=== PATIENT | male | born 1945 | race Caucasian/White ===

== ENCOUNTER → 2017-11-12 | Outpatient (CLI) | payer MEDICARE ==
[~2017-11-12] MED LIST: HYTRIN10 MG
--- NOTE | 2017-11-12 15:41 | Diagnostic Imaging Report ---
EXAM: Renal Ultrasound INDICATION: \[id number] \[id number] \S\CYST OF KIDNEY COMPARISON: Renal ultrasound 05/30/2017 TECHNIQUE: Transverse and longitudinal images of the kidneys and bladder were obtained. FINDINGS: Right Kidney: Size: 11 x 5.2 x 5.8 cm Echogenicity: Normal Parenchymal thickness: Normal Collecting system: No hydronephrosis Stones: None Cyst/Mass: None Left Kidney: Size: 10.3 x 5 x 5 cm Echogenicity: Normal Parenchymal thickness: Normal Collecting system: No hydronephrosis Stones: None Cyst/Mass: Interpolar 1.7 x 1.8 x 2.2 cm anechoic simple parapelvic cyst (previously 2.3 x 1.8 x 2.3 cm). Bladder: Normal Prostate: 2.6 x 3.3 x 3.8 cm (16.8 cc), within normal size. IMPRESSION: Slightly decreased size of the left renal parapelvic cyst. Otherwise, unremarkable renal ultrasound. Signed by: DR. Will Guzmán MD on 11/12/2017 3:38 PM
== END ==
LOC: US 09:42
PROVIDERS: ATTEND Urology
DX: N28.1 Cyst of kidney, acquired (principal)
CPT/HCPCS: 76770

== ENCOUNTER → 2017-11-27 | Outpatient (CLI) | payer MEDICARE ==
--- NOTE | 2017-11-27 12:12 | Diagnostic Imaging Report ---
PROCEDURE:TESTICULAR DOPPLER ULTRASOUND COMPARISON:None. INDICATIONS:SPERMATOCELE OF EPIDIDYMIS TECHNIQUE:The scrotum was evaluated with acosta scale and color duplex Doppler sonography. FINDINGS: Please see same day testicular ultrasound for full report. CONCLUSION: Please see same day testicular ultrasound for full report. Dictated by: Will Guzmán M.D. on 11/27/2017 at 12:22 Electronically approved by: Will Guzmán M.D. on 11/27/2017 at 12:22
--- NOTE | 2017-11-27 12:12 | Diagnostic Imaging Report ---
PROCEDURE:TESTICULAR ULTRASOUND COMPARISON:None. INDICATIONS:SPERMATOCELE OF EPIDIDYMIS TECHNIQUE: [place]on-scale and color doppler images of the testicles and scrotal contents were obtained. Duplex imaging with spectral waveform analysis was performed of the testicular arteries and veins. FINDINGS: RIGHT SCROTUM: Testicle: 2.3 x 1.2 x 1.4 cm. Homogeneous in echotexture. No masses. Color Doppler signal noted throughout. Normal venous and arterial spectral Doppler waveforms. Epididymal head: 0.9 x 0.9 x 0.6 cm. Homogeneous without increased vascularity. Hydrocele: None Varicocele: None LEFT SCROTUM: Testicle: 2.3 x 1 x 2.5 cm. Homogeneous in echotexture. No masses. Color Doppler signal noted throughout. Normal venous and arterial spectral Doppler waveforms. Epididymal head: 0.7 x 0.6 x 0.6 cm. Homogeneous without increased vascularity. Hydrocele: None Varicocele: None Additional findings: A 0.8 x 0.3 x 0.6 cm oval hypoechoic lesion appears centered within the dermal layer of the inner right thigh/lateral right scrotal wall. No detectable vascularity. No obvious tract to the skin. CONCLUSION: 1. No epididymal cysts or spermatoceles. 2. Subcentimeter hypoechoic lesion in the inner right thigh/lateral right scrotal wall may represent a sebaceous cyst. Dictated by: Will Guzmán M.D. on 11/27/2017 at 12:21 Electronically approved by: Will Guzmán M.D. on 11/27/2017 at 12:21
== END ==
LOC: US 10:52
PROVIDERS: ATTEND Urology
DX: N43.40 Spermatocele of epididymis, unspecified (principal)
CPT/HCPCS: 76870; 93976

== ENCOUNTER → 2018-12-08 | Outpatient (CLI) | payer MEDICARE ==
--- NOTE | 2018-12-08 15:12 | Diagnostic Imaging Report ---
EXAM: Scrotal Ultrasound INDICATION: SPERMATOCELE OF EPIDIDYMIS COMPARISON: None TECHNIQUE: Transverse and longitudinal images were obtained of the scrotum with grayscale imaging, color Doppler and spectral waveform analysis. FINDINGS: Right testis: Size: 2.4 x 1.2 x 2.1 cm, normal in size. Echogenicity: Normal Mass/Cysts: None Left testis: Size: 2.7 x 1.3 x 1.7 cm, normal in size. Echogenicity: Normal Mass/Cysts: None Epididymis: Appearance: Normal in size without increased vascularity. Mass/Cysts: There is a complex lesion in the left epididymal tail measuring 0.8 x 0.7 x 1.4 cm without internal flow, however, mild surrounding hypervascularity possibly a complex spermatocele or cyst cyst versus infectious etiology. Extratesticular: Masses: None Fluid collections: None Note is made of an oval hypoechoic subcutaneous lesion with posterior acoustic enhancement in the right thigh estimated at 0.9 x 0.5 x 0.6 cm. Doppler: Normal arterial flow to both testes and symmetrical flow on color Doppler evaluation is seen. No evidence of testicular torsion. IMPRESSION: 1. 1.4 cm complex lesion in the left epididymal tail may represent a complex spermatocele/cyst or possibly infectious in etiology in the proper clinical setting. Recommend follow-up to document resolution 2. Incidentally noted 0.9 cm subcutaneous cystic lesion in the proximal right thigh laterally. Signed by: Dr. Dante Osullivan M.D. on 12/08/2018 3:09 PM
== END ==
LOC: US 09:47
PROVIDERS: ATTEND Urology
DX: N43.40 Spermatocele of epididymis, unspecified (principal)
CPT/HCPCS: 76870; 93976

== ENCOUNTER → 2020-09-01 | Day surgery (SDC) | payer MEDICARE ==
[2020-08-29 13:30] LABS: BASOPHILS % 0.4 % (0.0-1.0); EOSINOPHILS # (AUTO) 0.1 (0.0-0.4); HEMATOCRIT 41.4 % (38.2-49.6); HEMOGLOBIN 13.5 g/dL (14.0-18.0); LYMPHOCYTES # (AUTO) 1.4 (1.0-3.2); LYMPHOCYTES % 19.5 % (18.0-39.1); MEAN CORPUSCULAR HEMOGLOBIN 30.4 pg (28-32); MEAN CORPUSCULAR HGB CONC 32.6 g/dL (31-35); MEAN CORPUSCULAR VOLUME 93.2 fL (81-99); MONOCYTES # (AUTO) 0.6 (0.2-0.8); MONOCYTES % 8.3 % (4.4-11.3); NEUTROPHILS # (AUTO) 4.9 (2.1-6.9); NEUTROPHILS % 70.5 % (38.7-80.0); PLATELET COUNT 271 x10e3/uL (140-360); RED BLOOD COUNT 4.44 x10e6/uL (4.3-5.7); RED CELL DISTRIBUTION WIDTH 13.2 % (11.7-14.4)
[2020-08-29 13:59] LABS: ANION GAP 14.6 mmol/L (8-16); BLOOD UREA NITROGEN 18 mg/dL (7-26); BUN/CREATININE RATIO 17 (6-25); CALCIUM 9.6 mg/dL (8.4-10.2); CARBON DIOXIDE 26 mmol/L (22-29); CHLORIDE 104 mmol/L (98-107); CREATININE, SERUM 1.06 mg/dL (0.72-1.25); EST GLOMERULAR FILTRATION RATE > 60 ML/MIN (60-); GLUCOSE 169 mg/dL (74-118); POTASSIUM 4.6 mmol/L (3.5-5.1); SODIUM 140 mmol/L (136-145)
[~2020-09-01] MED LIST changes: +ASPIRIN81 MG; +ATORVASTATIN CA20 MG PO; +BUPIVACAINE HCL 0.5% INJ 30 ML VIAL INJ ONE; +CEFAZOLIN SOD 1 GM/NS 50ML 100 ML IV ONE; +CHONDROITIN SU100 GM; +DEXAMETHASONE SOD PHOS INJ 4 MG/ML VIAL ONE; +FENTANYL CITRATE/PF 100MCG/2 ML INJ ONE; +LEVOCETIRIZINE D5 MG; +LIDOCAINE HCL 2% LOCAL INJ 5 ML SDV VIAL INJ ONE; +NEOSTIGMINE 1 MG/ML 10ML VIAL ONE; +ONDANSETRON HCL INJ 2MG/ML 2ML 2 MG/ML VIAL ONE; +POLYETHYLENE GL17 GM PO; +PROPOFOL IV EMULSION 10 MG/ML 20 ML VIAL ONE; +SEVOFLURANE INHAL SOLN 250 ML PEN BTL ONE
[2020-09-01 11:10] VITALS: BP 138/61
== END | disposition home or self-care (01) ==
LOC: OR 07:02
PROVIDERS: ATTEND Podiatrist Foot Surgery
DX: G57.62 Lesion of plantar nerve, left lower limb (principal); M20.42 Other hammer toe(s) (acquired), left foot; G47.33 Obstructive sleep apnea (adult) (pediatric); I10 Essential (primary) hypertension; R73.03 Prediabetes; B15.9 Hepatitis A without hepatic coma; Z88.8 Allergy status to other drugs, medicaments and biological substances; Z01.810 Encounter for preprocedural cardiovascular examination; Z01.812 Encounter for preprocedural laboratory examination; Z01.818 Encounter for other preprocedural examination; Z20.828 Contact with and (suspected) exposure to other viral communicable diseases; Z79.82 Long term (current) use of aspirin
CPT/HCPCS: 28080; 28285; 36415; 71046; 80048; 85025; 88305; 93005; C1713 ×2; J0690; J1100; J2001; J2405; J2704; J2710; J3010; U0002; V2790; 76000

== ENCOUNTER 2025-04-29 16:17 | Emergency (ER) | payer MEDICARE ==
[~2025-04-29] VITALS: Ht 182.9 cm; Wt 82.2 kg
[~2025-04-29 16:17] MED LIST changes: -BUPIVACAINE HCL 0.5% INJ 30 ML VIAL INJ ONE; -CEFAZOLIN SOD 1 GM/NS 50ML 100 ML IV ONE; -DEXAMETHASONE SOD PHOS INJ 4 MG/ML VIAL ONE; -FENTANYL CITRATE/PF 100MCG/2 ML INJ ONE; -LIDOCAINE HCL 2% LOCAL INJ 5 ML SDV VIAL INJ ONE; -NEOSTIGMINE 1 MG/ML 10ML VIAL ONE; -ONDANSETRON HCL INJ 2MG/ML 2ML 2 MG/ML VIAL ONE; -PROPOFOL IV EMULSION 10 MG/ML 20 ML VIAL ONE; -SEVOFLURANE INHAL SOLN 250 ML PEN BTL ONE
[2025-04-29] MEDS ORDERED: FAMOTIDINE 20 MG/2 ML VIAL IV ONE (16:59)
[2025-04-29] MEDS: SODIUM CHLORIDE 0.9% 500ML 500 ML IV STA (17:16)
[2025-04-29] MEDS: FAMOTIDINE 20 MG/2 ML VIAL IV ONE (17:16)
[2025-04-29] MEDS: ONDANSETRON HCL INJ 2MG/ML 2ML 2 MG/ML VIAL IV ONE (17:17)
[2025-04-29] MEDS: MECLIZINE HCL 12.5 MG TAB PO ONE (17:31)
[2025-04-29] MEDS: LORAZEPAM INJ 2 MG/ML VIAL IV ONE (18:40)
[2025-04-29 18:42] VITALS: PULSE 54; RESP 16; TEMP 97.4
[2025-04-29] MEDS ORDERED: ANTIVERT25 M1 PO (18:46)
[2025-04-29] MEDS ORDERED: ONDANSETRON ODT4 MG PO (18:46)
[2025-04-29 19:05] VITALS: BP 171/72; PULSE 66; RESP 18; TEMP 98; O2SAT 99
== END 2025-04-29 19:05 | disposition home or self-care (01) ==
LOC: FSED 16:22
DX: R42 Dizziness and giddiness (principal); R11.2 Nausea with vomiting, unspecified; R00.1 Bradycardia, unspecified; I10 Essential (primary) hypertension; E11.9 Type 2 diabetes mellitus without complications; R94.31 Abnormal electrocardiogram [ECG] [EKG]
CPT/HCPCS: 70450; 80053; 81003; 84484; 85025; 93005; 96374; 96375; 99283; J1308; J2060; J2405; J7040; J8597